=== PATIENT | female | born 1940 | race Caucasian/White ===

== ENCOUNTER → 2019-03-10 | Outpatient (CLI) | payer BC, MEDICARE ==
[2016-08-10 14:40] VITALS: BP 140/59
[~2019-03-10] MED LIST: ALEN70TA6 PO; AMLO5TAB10 PO; ATOR40TA59 PO; DIGO125T PO; ESOM40CA PO; FENO145T30 PO; LACT1CAP21 PO; METO-269 PO; OMEG500C PO; RIVA10TA PO
--- NOTE | 2019-03-10 10:04 | CARD ---
MR#: [id number] Date of Study: 03/10/2019 Ordering Physician: FERNANDO MAN, Referring Physician: FERNANDO MAN, Tech: Tracy Izquierdo [facility] APPROVED REPORT EXAM: Two-dimensional and M-mode echocardiogram with Doppler and color Doppler. Other Information Quality : GoodHR: 55bpm Rhythm : Bradycardia INDICATION PHTN 2D DIMENSIONS RVDd3.9 (2.9-3.5cm)Left Atrium(2D)5.6 (1.6-4.0cm) IVSd0.9 (0.7-1.1cm)Aortic Root(2D)2.9 (2.0-3.7cm) LVDd4.6 (3.9-5.9cm)LVOT Diameter2.0 (1.8-2.4cm) PWd0.8 (0.7-1.1cm)LVDs2.8 (2.5-4.0cm) FS (%) 39.2 %SV68.4 ml LVEF(%)69.7 (>50%) Aortic Valve AoV Peak Marques.138.7cm/sAoV VTI36.5cm AO Peak GR.7.7mmHgLVOT Peak Marques.92.0cm/s AO Mean GR.4mmHgAVA (VMAX)2.03cm2 Mitral Valve MV E Mngiflii508.5cm/sMV E Peak Gr.16mmHg MV DECEL [id number] A Zpmwoimm60.3cm/s MV E Mean Gr.3mmHgE/A Ratio7.1 Pulmonary Valve PV Peak Okdhugpq41.3cm/s Tricuspid Valve TR P. Xynwarbf813aa/sRAP KRGAQJRF45scGi TR Peak Gr.20lmWjXBBI04asJu Pulmonary Vein S1 Rqvdnbfs21.8cm/sD2 Oaurgojr18.6cm/s LEFT VENTRICLE The left ventricle is normal size. There is normal left ventricular wall thickness. The left ventricu lar systolic function is normal. The Ejection Fraction is 65-70%. There is normal LV segmental wall m otion. RIGHT VENTRICLE The right ventricle is normal size. There is normal right ventricular wall thickness. The right ventr icular systolic function is normal. ATRIA The left atrium is moderately dilated. The right atrium is severely dilated. The interatrial septum i s intact with no evidence for an atrial septal defect or patent foramen ovale as noted on 2-D or Dopp ler imaging. AORTIC VALVE The aortic valve is calcified but opens well. The aortic valve is trileaflet. Doppler and Color Flow revealed no significant aortic regurgitation. There is no significant aortic valvular stenosis. There is no aortic valvular vegetation. MITRAL VALVE The mitral valve is thickened but opens well. There is no evidence of mitral valve prolapse. There is no mitral valve stenosis. Doppler and Color-flow revealed mild mitral regurgitation. TRICUSPID VALVE The tricuspid valve is normal in structure and function. Doppler and Color Flow revealed mild tricusp id regurgitation. There is moderate pulmonary hypertension. The PA pressure was estimated at 57 mmHg. There is no tricuspid valve prolapse or vegetation. There is no tricuspid valve stenosis. PULMONIC VALVE The pulmonic valve is not well visualized. Doppler and Color Flow revealed mild pulmonic valvular reg urgitation. There is no pulmonic valvular stenosis. GREAT VESSELS The aortic root is normal in size. The ascending aorta is normal in size. The IVC is normal in size a nd collapses >50% with inspiration. PERICARDIAL EFFUSION There is no evidence of significant pericardial effusion. Critical Notification Critical Value: No <Conclusion> The left ventricular systolic function is normal. The Ejection Fraction is 65-70%. There is normal LV segmental wall motion. The left atrium is moderately dilated. Mild mitral regurgitation. Mild tricuspid regurgitation. There is moderate pulmonary hypertension. The PA pressure was estimated at 57 mmHg. There is no evidence of significant pericardial effusion. Signed by : Eduardo Ramsey, Electronically Approved : 03/10/2019 10:04:03
== END | disposition home or self-care (01) ==
LOC: ECHO 08:34
PROVIDERS: ATTEND Internal Medicine Cardiovascular Disease
DX: I08.8 Other rheumatic multiple valve diseases (principal); I27.0 Primary pulmonary hypertension
CPT/HCPCS: 93306

== ENCOUNTER → 2019-09-26 | Outpatient (CLI) | payer MEDICARE ==
[2016-08-10 14:40] VITALS: BP 140/59
--- NOTE | 2019-09-26 17:40 | RAD ---
MR#: [id number] Date of Study: 09/26/2019 Ordering Physician: FERNANDO LAWSON, Referring Physician: FERNANDO LAWSON, Tech: Matilda Herring RVT,[facility] APPROVED REPORT Patient Location: OUT-PATIENT Laterality:Bilateral Indications Bruit Risk Factors Hypertension: Doppler Spectral Velocity Analysis Right Left pCCA 77/9 cm/spCCA 93/11 cm/s mCCA 93/13 cm/smCCA 102/10 cm/s dCCA 97/11 cm/sdCCA 94/16 cm/s ECA 77/6 cm/sECA 100/8 cm/s pICA 80/9 cm/spICA 67/9 cm/s Cristian 88/12 cm/smICA 73/15 cm/s dICA 54/10 cm/sdICA 76/16 cm/s Vert. 56/11 cm/sVert. 59/5 cm/s ICA/CCA 0.91ICA/CCA 0.82 Findings Roy scale images of the bilateral carotid vessels demonstrate mild non-obstructive plaque. Spectral waveforms and color doppler and velocities are overall grossly within normal limits. No high grade stenosis identified. Based on velocity criteria, 0-49% stenosis bilaterally. Critical Notification Critical Value: No <Conclusion> No significant carotid disease. Signed by : Fernando Lawson, Electronically Approved : 09/26/2019 17:40:35
== END | disposition home or self-care (01) ==
LOC: US 10:21
PROVIDERS: ATTEND Internal Medicine Cardiovascular Disease
DX: R09.89 Other specified symptoms and signs involving the circulatory and respiratory systems (principal)
CPT/HCPCS: 93880

== ENCOUNTER → 2021-02-15 | Outpatient (CLI) | payer MEDICARE ==
[2016-08-10 14:40] VITALS: BP 140/59
[~2021-02-15] MED LIST changes: -ALEN70TA6 PO; +ALEN70TA71 PO; +AMLO-186 PO; -AMLO5TAB10 PO; -DIGO125T PO; +DIGO125T3 PO; +FENO145T3 PO; -FENO145T30 PO
--- NOTE | 2021-02-15 09:29 | RAD ---
MR#: [id number] Date of Study: 02/15/2021 Ordering Physician: FERNANDO MAN, Referring Physician: FERNANDO MAN, Tech: Jaxson Gannon MBA, RDMS, RVT, RDCS, RTR APPROVED REPORT Patient Location: OUT-PATIENT Laterality:Bilateral Indications Bruit Doppler Spectral Velocity Analysis Right Left pCCA 114/14 cm/spCCA 119/17 cm/s mCCA 115/15 cm/smCCA 131/20 cm/s dCCA 87/15 cm/sdCCA 110/19 cm/s Bulb 95/16 cm/sBulb 112/12 cm/s ECA 120/ cm/sECA 123/ cm/s pICA 103/14 cm/spICA 133/17 cm/s Cristian 93/16 cm/smICA 93/16 cm/s dICA 115/19 cm/sdICA 98/21 cm/s Vert. 77/ cm/sVert. 57/ cm/s Subcl. 185/ cm/sSubcl. 194/ cm/s ICA/CCA 1.00ICA/CCA 1.12 Findings Grayscale images of the bilateral carotid vessels demonstrates mild diffuse atherosclerosis. Based on spectral velocities and waveforms overall there is 0 to less than 50% stenosis in the right internal carotid artery. Normal ICA to CCA ratios with antegrade vertebral velocities and normal sub clavian velocities are noted on the right side. Although velocities are mildly elevated at 133 cm/s in the left proximal internal carotid artery the overall waveform is suggestive of 0 to 50% stenosis given normal diastolic velocities and no signific ant elevation in ICA to CCA ratios. Normal antegrade vertebral velocities are noted. No significant subclavian stenosis is noted on the left side. Critical Notification Critical Value: No <Conclusion> 1. No significant bilateral carotid occlusive disease. Signed by : Fernando Man, Electronically Approved : 02/15/2021 09:28:23
--- NOTE | 2021-02-15 12:09 | CARD ---
MR#: [id number] Date of Study: 02/15/2021 Ordering Physician: FERNANDO MAN, Referring Physician: FERNANDO MAN, Tech: Ariella Patel [facility] APPROVED REPORT EXAM: Two-dimensional and M-mode echocardiogram with Doppler and color Doppler. Other Information Quality : GoodHR: 62bpm Rhythm : nnl INDICATION Atrial Fibrillation 2D DIMENSIONS RVDd4.1 (2.9-3.5cm)Left Atrium(2D)5.6 (1.6-4.0cm) IVSd0.9 (0.7-1.1cm)Aortic Root(2D)3.0 (2.0-3.7cm) LVDd4.8 (3.9-5.9cm)LVOT Diameter2.0 (1.8-2.4cm) PWd0.8 (0.7-1.1cm)LVDs2.2 (2.5-4.0cm) FS (%) 53.7 %SV92.8 ml LVEF(%)84.5 (>50%) Aortic Valve AoV Peak Marques.142.8cm/sAoV VTI35.6cm AO Peak GR.8.2mmHgLVOT Peak Marques.120.1cm/s AO Mean GR.4mmHgAVA (VMAX)2.54cm2 Mitral Valve MV E Peak Gr.12mmHgMV E Mean Gr.4mmHg Pulmonary Valve PV Peak Seqmlfap523.2cm/s Tricuspid Valve TR P. Dlbtcxej425iu/sTR Peak Gr.40mmHg LEFT VENTRICLE The left ventricle is normal size. There is normal left ventricular wall thickness. The left ventricu lar systolic function is normal. Estimated ejection fraction 55-60%. There is normal LV segmental wa ll motion. RIGHT VENTRICLE The right ventricle is normal size. There is normal right ventricular wall thickness. The right ventr icular systolic function is normal. ATRIA The left atrium is moderate to severely dilated. The right atrium is moderate to severely dilated. Th e interatrial septum is intact with no evidence for an atrial septal defect or patent foramen ovale a s noted on 2-D or Doppler imaging. AORTIC VALVE The aortic valve is normal in structure and function. Doppler and Color Flow revealed no significant aortic regurgitation. There is no significant aortic valvular stenosis. MITRAL VALVE The mitral valve is thickened but opens well. There is no evidence of mitral valve prolapse. There is no mitral valve stenosis. Doppler and Color-flow revealed mild to moderate mitral regurgitation. TRICUSPID VALVE The tricuspid valve is normal in structure and function. Doppler and Color Flow revealed mild tricusp id regurgitation. Estimated PAP 55 mmHg. There is no tricuspid valve stenosis. PULMONIC VALVE The pulmonary valve is normal in structure and function. Doppler and Color Flow revealed moderate pul dilia valvular regurgitation. GREAT VESSELS The aortic root is normal in size. The ascending aorta is normal in size. The IVC is dilated and dharmesh apses <50% with inspiration. PERICARDIAL EFFUSION There is no evidence of significant pericardial effusion. Critical Notification Critical Value: No <Conclusion> The left ventricular systolic function is normal. Estimated ejection fraction 55-60%. There is normal LV segmental wall motion. Moderate to severe biatrial dilation. Mild to moderate mitral regurgitation. Mild tricuspid regurgitation. Estimated PAP 55 mmHg. There is no evidence of significant pericardial effusion. Signed by : Eduardo Ramsey, Electronically Approved : 02/15/2021 12:09:21
== END ==
LOC: US 06:26
PROVIDERS: ATTEND Internal Medicine Cardiovascular Disease
DX: R09.89 Other specified symptoms and signs involving the circulatory and respiratory systems (principal); I48.91 Unspecified atrial fibrillation
CPT/HCPCS: 93306; 93880

== ENCOUNTER → 2021-02-28 | Outpatient (CLI) | payer MEDICARE ==
[2016-08-10 14:40] VITALS: BP 140/59
--- NOTE | 2021-02-28 08:31 | RAD ---
EXAM: Chest CT without intravenous contrast. HISTORY: Pulmonary nodules. TECHNIQUE: Computed tomographic images of the chest were obtained without contrast. Multiplanar refor matting was performed. *One or more of the following individualized dose reduction techniques were utilized for this examina tion: 1. Automated exposure control. 2. Adjustment of the mA and/or kV according to patient size. 3. Use of iterative reconstruction technique. COMPARISON: None. FINDINGS: The heart is enlarged. There is calcification of the aortic valve and mitral valve annulus. There is calcified atherosclerotic plaque involving the aorta, aortic great vessels and coronary art eries. There are prominent mediastinal and hilar lymph nodes, some which are calcified and consistent with h ealed granulomatous disease. There is a small amount of nonspecific fluid within the pericardial rece sses. No pericardial effusion is seen. There is a moderate hiatal hernia. There is no pneumothorax or pleural effusion. There is bilateral posterior dependent and basilar atel ectasis. There are suspected superimposed apical and basilar pleural parenchymal scarring. There are few small pulmonary cysts. There is a 5 mm nodule abutting the pleura of the superior medial left upp er lobe (series 8, image 77). There is degenerative change throughout the visualized spine. There are 1.1 cm and 0.5 cm hypodense l esions within the liver. There is no acute finding involving the upper abdomen. IMPRESSION: 1. 5 mm nodule abutting the pleura of the superior medial left upper lobe. Follow-up can be performed in one year if there are risk factors for pulmonary neoplasm. 2. Biapical and bibasilar pleural parenchymal scarring and superimposed posterior and lower lobe pred ominant atelectasis. 3. Cardiomegaly. 4. Moderate hiatal hernia. 5. Small hypodense lesions within the liver. These are too small to characterize. In the absence of k nown malignancy, these are likely cysts or hemangiomas. 6. Prominent mediastinal and hilar lymph nodes, likely physiologic or reactive in etiology. Electronically signed by: Johanna Pink MD (02/28/2021 8:28 AM) [id number]
== END ==
LOC: CT 07:55
PROVIDERS: ATTEND Internal Medicine Pulmonary Disease
DX: R91.1 Solitary pulmonary nodule (principal); I70.0 Atherosclerosis of aorta; I25.10 Atherosclerotic heart disease of native coronary artery without angina pectoris; J98.11 Atelectasis; K44.9 Diaphragmatic hernia without obstruction or gangrene; I51.7 Cardiomegaly
CPT/HCPCS: 71250

== ENCOUNTER → 2022-02-24 | Outpatient (CLI) | payer BC ==
[2016-08-10 14:40] VITALS: BP 140/59
--- NOTE | 2022-02-24 12:45 | RAD ---
MR#: [id number] Date of Study: 02/24/2022 Ordering Physician: FERNANDO MAN, Referring Physician: FERNANDO MAN, Tech: Saundra Li, RDMS, RVT, RTR APPROVED REPORT Patient Location: OUT-PATIENT Laterality:Bilateral Indications Bruit Doppler Spectral Velocity Analysis Right Left pCCA 94/10 cm/spCCA 107/19 cm/s mCCA 116/15 cm/smCCA 105/14 cm/s dCCA 104/13 cm/sdCCA 94/19 cm/s Bulb 67/16 cm/sBulb 87/17 cm/s ECA 104/ cm/sECA 88/ cm/s pICA 87/14 cm/spICA 96/16 cm/s Cristian 91/18 cm/smICA 92/23 cm/s dICA 112/15 cm/sdICA 125/26 cm/s Vert. 78/ cm/sVert. 46/ cm/s ICA/CCA 0.96ICA/CCA 1.19 Findings Grayscale images of extracranial carotid arteries showed mild diffuse atherosclerosis. Spectral wave form and color duplex analysis showed normal velocities in common, internal and external carotid heike trell bilaterally suggestive of 0 to less than 50% stenosis. The ICA to CCA ratio is within normal li mits. The vertebral arteries showed antegrade flow bilaterally with normal velocities. No significa nt carotid artery stenosis was noted. Critical Notification Critical Value: No <Conclusion> Carotid arterial duplex scan did not show any significant carotid artery stenosis. Signed by : Eduardo Ramsey, Electronically Approved : 02/24/2022 12:45:31
--- NOTE | 2022-02-24 13:35 | CARD ---
MR#: [id number] Date of Study: 02/24/2022 Ordering Physician: FERNANDO MAN, Referring Physician: FERNANDO MAN, Tech: Ariella Patel [facility] APPROVED REPORT EXAM: Two-dimensional and M-mode echocardiogram with Doppler and color Doppler. Other Information Quality : AverageHR: 59bpm Rhythm : NSR INDICATION Atrial Fibrillation 2D DIMENSIONS Left Atrium(2D)5.6 (1.6-4.0cm)IVSd1.1 (0.7-1.1cm) Aortic Root(2D)3.2 (2.0-3.7cm)LVDd4.1 (3.9-5.9cm) LVOT Diameter1.9 (1.8-2.4cm)PWd1.1 (0.7-1.1cm) IVSs1.5 (0.8-1.2cm)LVDs2.7 (2.5-4.0cm) FS (%) 32.8 %PWs1.6 (0.8-1.2cm) SV45.6 ml Aortic Valve AoV Peak Marques.154.8cm/sAoV VTI32.7cm AO Peak GR.9.6mmHgLVOT Peak Marques.109.5cm/s LVOT VTI 27.43cmAO Mean GR.5mmHg JACKELIN (VMAX)1.73yt5PKN (VTI)2.45cm2 Mitral Valve MV E Ryluuqji240.7cm/sMV DECEL [id number] MV A Dzguynnp288.9cm/sMV ZGB15kg E/A Ratio2.0MVA (PHT)3.55cm2 TDI E/Lateral E'16.7E/Medial E'19.4 Pulmonary Valve PV Peak Jxcymkxo546.0cm/sPV Peak Grad.8mmHg Tricuspid Valve TR P. Niiyzgpp065ta/sTR Peak Gr.37mmHg LEFT VENTRICLE The left ventricle is normal size. There is borderline to mild concentric left ventricular hypertroph y. The left ventricular systolic function is normal. LV ejection fraction of 55 to 60%. There is norm al LV segmental wall motion. RIGHT VENTRICLE The right ventricle is normal size. There is normal right ventricular wall thickness. The right ventr icular systolic function is normal. ATRIA The left atrium is moderately dilated. The right atrium is moderately dilated. The interatrial septum is intact with no evidence for an atrial septal defect or patent foramen ovale as noted on 2-D or Do ppler imaging. AORTIC VALVE The aortic valve is normal in structure and function. Doppler and Color Flow revealed trace aortic re gurgitation. There is no significant aortic valvular stenosis. MITRAL VALVE The mitral valve is normal in structure and function. There is no evidence of mitral valve prolapse. There is no mitral valve stenosis. Doppler and Color-flow revealed mild to moderate mitral regurgitat ion. TRICUSPID VALVE The tricuspid valve is normal in structure and function. Doppler and Color Flow revealed mild to mode rate tricuspid regurgitation. Estimated PAP 48 mmHg. There is no tricuspid valve stenosis. PULMONIC VALVE The pulmonary valve is normal in structure and function. Doppler and Color Flow revealed mild pulmoni c valvular regurgitation. GREAT VESSELS The aortic root is normal in size. The ascending aorta is normal in size. The IVC is normal in size a nd collapses >50% with inspiration. PERICARDIAL EFFUSION There is no evidence of significant pericardial effusion. Critical Notification Critical Value: No <Conclusion> The left ventricle is normal size. The left ventricular systolic function is normal. LV ejection fraction of 55 to 60%. There is borderline to mild concentric left ventricular hypertrophy. Doppler and Color Flow revealed trace aortic regurgitation. There is no significant aortic valvular stenosis. Doppler and Color-flow revealed mild to moderate mitral regurgitation. Doppler and Color Flow revealed mild to moderate tricuspid regurgitation. Estimated PAP 48 mmHg. Signed by : Codey Villasenor MD Electronically Approved : 02/24/2022 13:35:34
== END ==
LOC: ECHO 08:09
PROVIDERS: ATTEND Internal Medicine Cardiovascular Disease
DX: I08.8 Other rheumatic multiple valve diseases (principal); I09.89 Other specified rheumatic heart diseases; I48.91 Unspecified atrial fibrillation; R05.9 Cough, unspecified; R60.9 Edema, unspecified; R53.83 Other fatigue
CPT/HCPCS: 93306; 93880; C8929